=== PATIENT | female | born 1930 | race Caucasian/White ===

== ENCOUNTER → 2017-10-15 | Outpatient (CLI) | payer MEDICARE ==
[2017-10-15 10:47] LABS: HCT 43.4 % (34.0-46.0); HGB 14.3 gm/dL (11.4-16.0); MCH 31.2 pg (25.0-35.0); MCV 94.6 fL (80.0-100.0); Mean Platelet Volume 6.9; Platelet Count 253 k/uL (150-450); RBC 4.59 m/uL (3.80-5.40); RDW 12.7 % (11.5-15.5); WBC 8.5 k/uL (3.8-10.6)
[2017-10-15 10:54] LABS: Anion Gap 11 mmol/L; Blood Urea Nitrogen 14 mg/dL (7-17); Carbon Dioxide 31 mmol/L (22-30); Chloride 100 mmol/L (98-107); Potassium 4.4 mmol/L (3.5-5.1); Sodium 142 mmol/L (137-145)
== END | disposition home or self-care (01) ==
LOC: LABPAT 09:52
PROVIDERS: ATTEND Internal Medicine Interventional Cardiology
DX: Z01.812 Encounter for preprocedural laboratory examination (principal); I25.10 Atherosclerotic heart disease of native coronary artery without angina pectoris
CPT/HCPCS: 36415; 80051; 82565; 84520; 85027

== ENCOUNTER 2017-10-18 06:18 | Day surgery (SDC) | payer MEDICARE ==
[2017-10-16 09:45] VITALS: BMI 23.8
[2017-10-18] MEDS ORDERED: ASPIRIN 325 MG TAB PO STA (06:34)
[2017-10-18] MEDS ORDERED: ALPRAZolam 0.25 MG TAB PO PRN (06:34)
[2017-10-18] MEDS ORDERED: ALPRAZolam 0.5 MG TAB PO PRN (06:34)
[2017-10-18] MEDS ORDERED: SODIUM CHLORIDE 0.9% 1,000 ML in EMPTY BAG 1 BAG IV ONE (06:34)
[2017-10-18] MEDS ORDERED: NITROGLYCERIN SL TABS 0.4 MG TAB SUBLINGUAL PRN (06:34)
[2017-10-18 07:01] VITALS: PULSE 86; TEMP 98
[2017-10-18] MEDS ORDERED: LIDOCAINE 2% INJ 20 MG/ML (20 ML MDV) ONE (07:05)
[2017-10-18] MEDS ORDERED: MIDAZOLAM 2 MG/2 ML VIAL ONE (07:05)
[2017-10-18] MEDS ORDERED: VERAPAMIL 2.5 MG/ML 2 ML AMP ONE (07:06)
[2017-10-18] MEDS ORDERED: HEPARIN SODIUM 1,000 UN/ML (10ML VL) ONE (07:06)
[2017-10-18] MEDS ORDERED: MIDAZOLAM 2 MG/2 ML VIAL IVP ONE (07:45)
[2017-10-18] MEDS ORDERED: LIDOCAINE 2% INJ 20 MG/ML SQ ONE ×2 (07:49→07:58)
[2017-10-18] MEDS: VERAPAMIL SYRINGE (5 MG/10 ML) INTRAARTER ONE ×2 (07:53→07:54)
[2017-10-18] MEDS ORDERED: VERAPAMIL SYRINGE (5 MG/10 ML) INTRAARTER ONE (07:54)
[2017-10-18] MEDS ORDERED: NITROGLYCERIN 1000MCG/10ML SYRINGE INTRAARTER ONE (08:11)
[2017-10-18] MEDS ORDERED: ADENOSINE 90 MG in SODIUM CHLORIDE 0.9% 60 ML IVP ONE (08:35)
[2017-10-18] MEDS ORDERED: IOHEXOL 350 MG/ML 125ML BOTTLE INJ ONE (08:39)
[2017-10-18] MEDS ORDERED: IV FLUID CONTINUATION 1,000 ML IV ONE (08:46)
[2017-10-18] MEDS ORDERED: RX INFO: IV CONTRAST WAS GIVEN 1 EACH MISC MISCELLANE PRN (08:47)
[2017-10-18] MEDS ORDERED: SODIUM CHLORIDE 0.9% 1,000 ML IV SCH (09:00)
--- NOTE | 2017-10-18 09:19 | CC ---
CARDIAC CATHETERIZATION REPORT DATE OF SERVICE: 10/18/17 PERFORMING PHYSICIAN: Sami Steiner MD, natural sciences professor. PROCEDURE PERFORMED: 1. Selective right and left coronary angiogram. 2. Left heart catheterization. 3. Fractional flow reserve FFR of the LAD. INDICATION: This is a pleasant 86-year-old female patient who is known to have coronary artery disease and prior stenting of the RCA, developed had syncopal episode. She underwent myocardial perfusion imaging stress test and that she came in to be ischemic. In view of that, heart catheterization was recommended. APPROACH: Right radial artery and right common femoral artery. COMPLICATION: None. LEVEL OF SEDATION: Moderate, sedation length of 55 minutes. PROCEDURE DESCRIPTION: After obtaining informed consent, the patient was brought to cardiac calibration laboratory technician. The right common femoral artery was cannulated using micropuncture technique and a micropuncture wire passed easily then I placed a 6-Tajik sheath in the right common femoral artery. I did after that selective right and left coronary angiogram using JR4 and JL4 catheters. I did left heart catheterization using 6-Tajik pigtail catheter. After that, I did FFR of the LAD. Please see a separate paragraph for that. Initially, I accessed the right radial artery, but I could not engage the coronaries from the right radial artery because of the severe tortuosity. SELECTIVE CORONARY ANGIOGRAM: 1. The right coronary artery is a large caliber vessel and it is a dominant vessel. The proximal RCA is stented and the stent is patent. The mid RCA has mild disease only and RCA distally has mild disease only and bifurcates into PDA and PLV branches both are angiographically normal. 2. The left main is angiographically normal. It bifurcates into the left circumflex and left anterior descending artery. 3. The left circumflex is a large caliber vessel. It is a nondominant vessel with the proximal circ appeared to have mild disease only. It gives rise into the first OM branch which appeared to be a moderate caliber vessel with mild disease only. The mid left circumflex is normal and gives rise into a second and third OM branches both are angiographically normal and the circumflex continues after that as a small-caliber vessel in the AV groove. 4. The LAD: The proximal LAD appeared to have mild disease only and gives rise into a medium-sized diagonal branch which seems to have intermediate disease in the proximal portion. The mid LAD has tubular lesion angiographically looks in the range of 60%, but on the STATELESS cranial looks in the range of 70% to 80%, and the FFR came in to be ischemic at 0.76. The LAD distally appeared to have mild disease only. HEMODYNAMICS: The left ventricular end-diastolic pressure was 16 mmHg and no significant gradient was identified across the aortic valve. FFR of the LAD: Anticoagulation was initiated using heparin. ACT monitoring throughout the procedure was performed. After that, I did after zeroing the Doppler wire and equalizing between the Doppler wire and the guiding catheter which was JL4 guiding catheter. We did FFR per IV adenosine infusion and the FFR came in to be ischemic at 0.76. The procedure was completed without any complication. CONCLUSION: 1. Patent stent in the proximal to mid RCA. 2. Mild nonobstructive disease involving the left circumflex. 3. Severe disease involving the mid LAD with a calcified lesion. POSTPROCEDURE MANAGEMENT: Patient will be scheduled to undergo an atherectomy and stent of the LAD in the next few days. MMODL / IJN: [id number] /
[2017-10-18] MEDS ORDERED: ACETAMINOPHEN TAB 500 MG TAB PO STA (09:21)
--- NOTE | 2017-10-18 09:22 | LTR ---
DATE OF SERVICE: October 18, [address] Varghese: Ms. Lala Cifuentes had recently a syncopal episode and fractured her left hip. She underwent a myocardial perfusion. As you know, she has coronary artery disease and she underwent stenting of the RCA back in 2010 and stenting of the RCA in 2010 was performed in the setting of syncope. This time she underwent a stress test and that revealed ischemia. In view of that, a heart catheterization was recommended. The heart catheterization was performed today and revealed patent stent in the proximal to mid RCA with severe disease involving the mid LAD with calcified lesion. I am going to schedule the patient to undergo an atherectomy and stenting of the LAD in the next few weeks. I want to thank you for allowing me to participate in her care. Sincerely, JUSTO / JACKLYN: [id number] /
[2017-10-18 12:18] VITALS: RESP 18
[2017-10-18 14:35] VITALS: BP 138/70
== END 2017-10-18 14:10 | disposition home or self-care (01) ==
LOC: CATHCVL 06:18
PROVIDERS: ATTEND Internal Medicine Interventional Cardiology
DX: E78.5 Hyperlipidemia, unspecified (principal); Z95.5 Presence of coronary angioplasty implant and graft; I25.10 Atherosclerotic heart disease of native coronary artery without angina pectoris; I10 Essential (primary) hypertension; I25.84 Coronary atherosclerosis due to calcified coronary lesion; I42.9 Cardiomyopathy, unspecified; J44.9 Chronic obstructive pulmonary disease, unspecified; Z79.82 Long term (current) use of aspirin; Z79.51 Long term (current) use of inhaled steroids; Z79.899 Other long term (current) drug therapy
CPT/HCPCS: 93571; 93458; 85347; C1887; C1769 ×3; C1894 ×2; C1760; J2001; J2250; J0153; J1644; Q9967